=== PATIENT | male | born 1940 ===

== ENCOUNTER 2018-04-17 11:54 | Outpatient (CLI) | payer OTHER ==
[~2018-04-17 11:54] MED LIST: PEPCID20 MG PO
== END 2018-04-17 12:03 | disposition home or self-care (01) ==
LOC: LAB 11:54
DX: I10 Essential (primary) hypertension (principal); K43.6 Other and unspecified ventral hernia with obstruction, without gangrene

== ENCOUNTER 2018-04-18 07:00 | Day surgery (SDC) | payer OTHER ==
[2018-04-19] MEDS ORDERED: NEURONTIN300 MG PO (07:38)
[2018-04-19] MEDS ORDERED: PERCOCET 5-3251 EACH PO (07:38)
[2018-04-19] MEDS ORDERED: MIRALAX17 GM PO (07:38)
== END 2018-04-19 09:00 | disposition home or self-care (01) ==
LOC: SURH 07:00 → O/R 07:00 → CIR.AMB 07:00 → EDSTATUS 13:15 → SURH 13:15 → O/R 14:00 → SURH 14:00 → CIR.AMB 04-19 07:00 → O/R 04-19 13:46 → SURH 04-19 13:46
DX: K40.90 Unilateral inguinal hernia, without obstruction or gangrene, not specified as recurrent (principal); K43.6 Other and unspecified ventral hernia with obstruction, without gangrene

== ENCOUNTER 2018-04-20 15:38 | Inpatient (IN) | payer OTHER ==
[~2018-04-20] VITALS: Ht 165.1 cm; Wt 65.8 kg
[~2018-04-20 15:38] MED LIST changes: +MIRALAX17 GM PO; +NEURONTIN300 MG PO; +PERCOCET 5-3251 EACH PO
--- NOTE | 2018-04-20 16:54 | NUR ---
SE RECIBE PTE ALERTA Y ORIENTADO X3 EL CUAL REFIERE VENIR POR DOLOR ABDOMINAL, CON ESCALOFRIOS, NAUSEAS Y VOMITOS. PTE REFIERE TRACEE SIDO OPERADO DE 2 HERNIAS RECIENTEMENTE. SE MIDEN S/V A PTE Y SE COLOCA EN DARA DE SEC.K.
--- NOTE | 2018-04-20 16:56 | NUR ---
SE EDCUA A APTE SOBRE [place] MEDICO ESTA REFIERE ENTENDER. SE VIVIAN MUESTRAS DE LA [facility] DE [facility]ATOR[facility] UTILZIADNO MEDIAS ASEPTICAS. Y SE ADMINSITRAN EMDICAMENTOS A PTE LOS CUALES TOELRA Y SE NOTIFICA ESTUDIO DE PLACA PENDIENTE A REALZIAR.
== END 2018-04-26 20:25 | DRG 390 ==
LOC: ER 15:38 → SURG 17:35
PROVIDERS: ADMIT Surgery
PROC: 02HV33Z Insertion of Infusion Device into Superior Vena Cava, Percutaneous Approach (ICD-10-PCS; principal; 2018-04-21)
PROC: BW21ZZZ Computerized Tomography (CT Scan) of Abdomen and Pelvis (ICD-10-PCS; 2018-04-21)
DX: K91.31 Postprocedural partial intestinal obstruction (principal); E86.0 Dehydration; I11.9 Hypertensive heart disease without heart failure; K59.09 Other constipation; K21.9 Gastro-esophageal reflux disease without esophagitis; N40.0 Benign prostatic hyperplasia without lower urinary tract symptoms; Z90.49 Acquired absence of other specified parts of digestive tract